=== PATIENT | female | born 1940 | race Caucasian/White ===

== ENCOUNTER 2017-05-31 00:49 | Emergency (ER) | payer MEDICARE, OTHER ==
[~2017-05-31] VITALS: Ht 160 cm; Wt 80.3 kg
[2017-05-31] MEDS ORDERED: VASOTEC20 MG (00:57)
[2017-05-31 01:38] LABS: ABSOLUTE BASOPHILS 0.1 thou/uL (0.0-0.2); ABSOLUTE EOSINOPHILS 0.3 thou/uL (0.0-0.7); ABSOLUTE LYMPHOCYTES 3.5 thou/uL (0.8-5.3); ABSOLUTE MONOCYTES 0.8 thou/uL (0.0-1.2); ABSOLUTE NEUTROPHILS 4.6 thou/uL (1.6-8.1); BASOPHILS 0.6 %; EOSINOPHILS 3.6 %; HEMATOCRIT 43.2 % (37.0-47.0); HEMOGLOBIN 14.2 gm/dL (12.0-15.0); LYMPHOCYTES 37.7 %; MCH 28.2 pg (26.0-34.0); MCHC 32.9 g/dL (28.0-37.0); MCV 85.6 fL (80.0-100.0); MONOCYTES 8.3 %; MPV 9.2 fl. (7.2-11.1); NUCLEATED RBCS 0 /100WBC; PLATELET COUNT* 203 thou/uL (150-400); POLYS 49.8 %; RBC 5.05 mil/uL (4.20-5.00); RDW-CV 14.3 % (10.5-14.5); WBC 9.2 thou/uL (4.0-11.0)
[2017-05-31 01:45] LABS: ANION GAP 9 mmol/L (7-16); BUN 27 mg/dL (7-18); CALCIUM 10.2 mg/dL (8.5-10.1); CHLORIDE 103 mmol/L (98-107); CO2 27 mmol/L (21-32); CREATININE 1.1 mg/dL (0.6-1.3); GLUCOSE 106 mg/dL (70-99); SODIUM 139 mmol/L (136-145)
[2017-05-31 01:52] LABS: URINE BILIRUBIN NEGATIVE (Negative); URINE BLOOD NEGATIVE (Negative); URINE CLARITY CLEAR; URINE COLOR YELLOW; URINE GLUCOSE-RANDOM NEGATIVE (Negative); URINE KETONES NEGATIVE (Negative); URINE LEUKOCYTES-REFLEX NEGATIVE (Negative); URINE NITRITE-REFLEX NEGATIVE (Negative); URINE PROTEIN NEGATIVE (Negative); URINE SPECIFIC GRAVITY > 1.030 (1.005-1.030); URINE UROBILINOGEN 0.2 E.U./dl (0.2-1.0)
[2017-05-31 01:53] LABS: ALBUMIN 3.8 g/dL (3.4-5.0); ALKALINE PHOSPHATASE 107 U/L (46-116); SGOT 22 U/L (15-37); SGPT 22 U/L (30-65); TOTAL BILIRUBIN 0.3 mg/dL (<0.1-1.0); TOTAL PROTEIN 7.1 g/dL (6.4-8.2); TROPONIN-I LEVEL <0.06 ng/mL (<0.06)
[2017-05-31 02:35] VITALS: BP 135/65
--- NOTE | 2017-05-31 17:29 | EKG ---
[place] [address] ELECTROCARDIOGRAM REPORT Name: KRISTI DAVILA Room: [facility]#: [id number] Admission: 05/31/17 Attend Phys: Discharge: 05/31/17 Date of : 40 Report #: [id number] THIS REPORT FOR: //name// [facility] ED Test Date: 2017-05-31 Test Time: 00:55:10 Pat Name: KRISTI DAVILA Department: Room: Gender: F Field Marketer: RADHA : 1940 Requested By: Alessandra Lo Order Number: [id number] MD: Maximo Warren Measurements Intervals [place] Rate: 89 P: 55 VT: 173 QRS: -11 QRSD: 96 T: 54 QT: 362 QTc: 441 Interpretive Statements Sinus rhythm Abnormal R-wave progression, late transition Minimal ST depression, lateral leads Baseline wander in lead(s) V1,V3 No previous ECG available for comparison Electronically Signed On 05-31-2017 17:29:32 REAL ESTATE PROFESSOR by Maximo Warren [email or web address] <ELECTRONICALLY SIGNED> By: Maximo Warren MD, [facility] 05/31/17 1729 0055 Maximo Warren MD, FAC /EPI
== END 2017-05-31 02:36 | disposition home or self-care (01) ==
LOC: M.ERS 00:49
PROVIDERS: Emergency Medicine
DX: R00.2 Palpitations (principal); I10 Essential (primary) hypertension